=== PATIENT | male | born 1980 | race Caucasian/White ===

== ENCOUNTER 2023-07-14 02:24 | Emergency (ER) | payer OTHER ==
[2023-07-14] MEDS ORDERED: ERYTHROMYCIN OPHTH OINT 1 GM TUBE LEFTEYE STA (03:04)
--- NOTE | 2023-07-14 03:05 | ED Physician Documentation ---
PD HPI OPHTHO - Stated complaint Stated Complaint: L EYE INJ - Chief complaint Chief Complaint: Heent - History obtained from History obtained from: Patient - Additional information Additional information: 42-year-old male presents by private vehicle from home for foreign body sensation in his left eye. Patient was working with metal earlier today and thinks he may have gotten something in his eye. He is up-to-date on his tetanus shot, he states that 4 days ago he had a similar incident [facility]. He is currently on antibiotic drops and has ophthalmology follow-up in 2 days.Denies vision changes. Review of Systems Eyes: reports: Irritation. denies: Loss of vision, Decreased vision, Photophobia, Discharge PD PAST MEDICAL HISTORY - Past Medical History Past Medical History: No Cardiovascular: None Respiratory: None Neuro: None Endocrine/Autoimmune: None GI: None : None HEENT: None Psych: None Musculoskeletal: None Derm: None Other Past Medical History: per patient report - Past Surgical History Past Surgical History: No - Allergies Allergies/Adverse Reactions: Allergies Allergy/AdvReac Type Severity Reaction Status Date / Time No Known Drug Allergies Allergy Verified 07/14/23 02:41 - Social History Does the pt smoke?: No Smoking Status: Never smoker Does the pt drink ETOH?: No Does the pt have substance abuse?: No - Immunizations Immunizations are current?: Yes - POLST Patient has POLST: No PD ED PE NORMAL - Vitals Vital signs reviewed: Yes - General General: Alert and oriented X 3, No acute distress, Well developed/nourished - HEENT HEENT: PERRL, EOMI, Other (mild conjunctival injection. Fluorescein uptake 11 o'clock position on L eye. 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 Eyelids everted, no foreign body found. Negative Naga sign. No metallic foreign body seen on cornea. Pain resolved with proparacaine drops. Patient counseled on the importance of wearing eye protection when working with metal. He was given erythromycin ointment for comfort and sent home with the antibiotic tube. Patient advised that he may use this in addition to the eyedrops he currently has. He was instructed to continue using antibiotic drops until otherwise directed during his follow up on Saturday. Departure - Departure Disposition: 01 Home, Self Care Clinical Impression: Corneal abrasion Qualifiers: Encounter type: initial encounter Laterality: left Qualified Code(s): S05.02XA - Injury of conjunctiva and corneal abrasion without foreign body, left eye, initial encounter Condition: Stable Instructions: ED Eye Injury Corneal Abrasion Forms: PCP List Discharge Date/Time: 07/14/23 03:22
[2023-07-14 03:10] VITALS: BP 119/64; O2SAT 98
== END 2023-07-14 03:22 | disposition home or self-care (01) ==
LOC: ED 02:24
DX: S05.02XA Injury of conjunctiva and corneal abrasion without foreign body, left eye, initial encounter (principal); X58.XXXA Exposure to other specified factors, initial encounter
CPT/HCPCS: 99282; 99283; J3490

== ENCOUNTER 2024-04-13 08:56 | Outpatient (CLI) | payer OTHER ==
--- NOTE | 2024-04-13 13:15 | SLEEP CARE CONSULTATION ---
Information from patient questionnaire entered by Olive Johnston. I have reviewed and concur with the information entered by Olive Johnston. This document represents the service I personally performed and the decisions made by me, Kelly Lynne MD, [facility]. History of Present Illness Service Date and Time: 04/13/2024 0856 Reason for Visit: New patient Chief Complaint: reports: Excessive daytime sleepiness, Frequent awakenings at night, Other (TROUBLE GETTING TO SLEEP) Date of Onset: 4YRS Usual bedtime: 2230 Time it takes to fall asleep: 2HRS Snores at night: No Observed to quit breathing while asleep: No Sleeps alone due to snoring: No Number of times waking at night: 1-2 Reasons for waking at night: reports: Other (UNKNOWN, RESTLESS) Toss, Turn, or Twitch while sleeping: Yes Recalls having dreams: No Usually gets out of bed at: 0630 Feels refreshed in the morning: No Morning headache: No Sleepy or fatigued during the day: Yes Ever fallen asleep while driving: Yes Takes day naps: Yes Dreams during day naps: No Prior sleep studies: No Additional HPI information: I had the pleasure of seeing Mr. Rose today regarding the possibility of him having a sleep disorder. As you know, he is a 43-year-old gentleman who complains of difficulty falling asleep at the beginning of the night. This happens 2 3 nights a week and has been going on for about 4 years. He reports feeling jittery in the legs in the evening that goes away with moving. He reports averaging 7 hours of sleep throughout his life. The patient tells me that he normally goes to bed around 10:30 pm, and it takes him approximately 2 hours to fall asleep. He does not take any sleep aid. He has not been told that he snores loudly or irregularly at night. He has never been observed to stop breathing in his sleep. His sleeps in the same bed. He can recall waking up on the average of 1 - 2 times during the night. Most of the time he wakes up because of unknown reason. He has never awakened because of his own snoring, choking, or having to gasp for air. There is a lot of tossing and turning in his sleep. No somniloquy (sleep talking) or somnambulism (sleep walking). Generally, he can recall having dreams. In the morning he usually gets up out of the bed around 6:30 7:30 a.m. not feeling refreshed nor rested. He usually does not have a morning headache. During the day he complai ns of feeling sleepy and fatigued. His score on [place] Sleepiness Scale is 20 out of 24. He has fallen asleep while driving and has gone out of the jorge. He usually takes a short nap during the day. He reports having impaired concentration during the day. 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 Patient is and lives in [place]. Have you smoked in the past 12 months: No Alcohol use: No Caffeine use: Yes Caffeine amount and frequency: 1 OUNCE DAILY Family History Family history of sleep disordered breathing: No Allergies and Home Medications Known drug allergies: No Drug allergies reviewed: Yes Home medication list reviewed: Yes Allergy and home medication list: Allergies No Known Drug Allergies Allergy (Verified 04/09/24 08:26) Review of Systems Cardiovascular: denies: high blood pressure, palpitations, chest pain, irregular heart rate or pulse, leg or foot swelling, have to sleep sitting up, other Respiratory: denies: shortness of breath, wheeze, sputum production, chronic cough, other Gastrointestinal: denies: heartburn, difficulty swallowing, nausea, vomitting, diarrhea, abdominal pain, other Urinary: reports: frequency, urgency Neurological: denies: headaches, seizure, head trauma, disorientation, speech dysfunction, gait or balance problems, fainting or unconsciousness, other Psychiatric: denies: Attention Deficit Hyperactivity, anxiety, depression, mood disorder, claustrophobia, other Ear/Nose/Throat: denies: nasal congestion, sinus problems, nose bleeds, dry mouth/throat, hoarseness, injury to nose, tonsillectomy, wisdom teeth removed, other Endocrine: denies: thyroid disease, history of goiter, sluggishness, too hot or cold, excessive thirst, increased appetite, increased urination, unexplained weakness, other Musculoskeletal: reports: joint pain, back pain, muscle pain or cramping Immunologic: denies: sneezing, rash, itching, allergies to food or environment, other Physical Exam Vital signs obtained and entered by: OLIVE Reyez MA Blood Pressure: 128/71 (LEFT ARM) Cuff size: long Heart Rate: 48 O2 Saturation: 100 Height: 5 ft 10 in Weight: 191 lb 6.4 oz Body Mass Index: 27.4 BMI Classification: Overweight Neck circumference: 15.5 Mood/affect: normal HEENT: No craniofacial malformation Nostrils: patent to airflow Turbinates: normal Septum: midline Mouth and throat: narrow oropharynx Soft palate: long Hard palate: normal Uvula: normal Uvula visualization: 50% Mallampati Class II Tongue: normal in size Tonsils: absent bilaterally Chin and jaw: normal size and position Neck: normal w/o lymphadenopathy or thyromegaly Heart: regular rate and rhythm Extremities: no edema or clubbing Neurologic: intact Impression and Plan IMPRESSION: 1. Insomnia, chronic, involving mostly the sleep onset. This most likely because he wakes up on his own around 7:30 am which sets his bedtime at around midnight, assuming the normal sleep requirement of 8 hours a night. Therefore, going to bed at 10:30 pm is about 2 hours too early. He was recommended to either go to bed later or wake up earlier. A sleep study will be ordered to rule out sleep disrupting conditions, including sleep-related breathing disorder and periodic leg movement of sleep. The patient does have restless leg symptoms. I informed the patient of what the sleep studies involve and after some discussion, he agreed to proceed. Plan: 1. Schedule an in-laboratory polysomnography. 2. Maintain a regular wake up time and spend no more than 7 hours in bed at night. Avoid naps. The patient will plan on 11:30 pm to 6:30 am. 3. Return for follow up after the sleep study. Follow up with Sleep Care in: 1-2 months Visit Type: In Office Time Spent with Patient (minutes): 15 Provider Statement: I spent 100% of the Face to Face Visit with the patient with greater than 50% spent counseling the patient and coordination of care.
[2024-04-13 13:22] VITALS: BP 128/71; O2SAT 100
== END 2024-04-13 08:57 | disposition home or self-care (01) ==
LOC: SC 08:56
PROVIDERS: ATTEND Internal Medicine Pulmonary Disease
DX: G47.00 Insomnia, unspecified (principal); E66.3 Overweight; Z68.27 Body mass index [BMI] 27.0-27.9, adult
CPT/HCPCS: 99202; 99212

== ENCOUNTER 2024-06-14 19:18 | Outpatient (CLI) | payer OTHER | END 2024-06-14 19:19 | disposition home or self-care (01) | LOC: SC 19:18 | PROVIDERS: ATTEND Internal Medicine Pulmonary Disease | DX: R06.83 Snoring (principal); G47.10 Hypersomnia, unspecified; R53.83 Other fatigue; G47.00 Insomnia, unspecified; G25.81 Restless legs syndrome; G47.8 Other sleep disorders | CPT/HCPCS: 95810 ==